=== PATIENT | male | born 2000 | race Caucasian/White ===

== ENCOUNTER 2018-09-26 02:09 | Emergency (ER) | payer OTHER ==
[~2018-09-26] VITALS: Ht 177.8 cm; Wt 87.1 kg
[2018-09-26 02:16] VITALS: Ht 177.8 cm; Wt 87.1 kg
[2018-09-26 02:37] VITALS: BP 123/89
== END 2018-09-26 02:37 | disposition home or self-care (01) ==
LOC: ED 02:09
DX: R04.0 Epistaxis (principal)